=== PATIENT | male | born 1950 | race Caucasian/White ===

== ENCOUNTER 2023-08-26 | Outpatient (REF) | payer OTHER, SELFPAY ==
[2023-08-26 13:04] LABS: Glucose Random 118 mg/dL (60-115)
[2023-08-26 13:07] LABS: Estimated Average Glucose 128 mg/dL; Hemoglobin A1c % 6.1 % (<6.0)
== END 2023-08-26 00:01 | disposition home or self-care (01) ==
LOC: HO.LAB
PROVIDERS: Visit Provider Physician Assistant Surgical
DX: E66.9 Obesity, unspecified (principal); Z79.899 Other long term (current) drug therapy
CPT/HCPCS: 36415; 82947; 83036; 99453

== ENCOUNTER 2023-08-26 11:46 | Outpatient (AMB) | payer OTHER, SELFPAY ==
[2023-08-26 13:20] VITALS: BP 142/79; PULSE 89; TEMP 36.5; O2SAT 96; BMI 36.4
--- NOTE | 2023-08-26 13:20 | HO.OFFWMMET ---
Intake VS Expanded 08/26/23 13:20 BP 142/79 H Blood Pressure Location Rt brachial Blood Pressure Position Sitting Pulse 89 Pulse Source Pulse Oximeter Temp 97.7 F Temperature Source Tympanic Pulse Oximetry 96 Oxygen Delivery Method Room Air Height 5 ft 9 in Weight 246 lb 6.4 oz BMI 36.4 Body Fat % 37.8 Body Fat Mass 93.0 Fat Free Mass 153.2 Visceral Fat Rating 24.0 Body Water % 41.4 Body Water Mass 101.8 Muscle Mass/Score 145.8 Basal Metabolic Rate/Score 2,089 Intake Visit Reasons: (OV) metabolic group session Beverage Specialist Required: No Medication List - Last Reconciled 08/26/23 by FRANKLIN Keen [Saw palmetto PO] apixaban (Eliquis) 5 mg PO BID [ashwagandha PO] digoxin 125 mcg PO DAILY diltiazem HCl 180 mg PO DAILY [glucosamine chondroitin PO] lorazepam 0.5 mg PO DAILY PRN [metamucil PO] metoprolol succinate ER 100 mg PO DAILY omega 5-eel-xfi-fish oil 1,200 (144-216) mg (Fish Oil) caps PO rosuvastatin 5 mg PO DAILY tamsulosin 0.4 mg PO DAILY valsartan-hydrochlorothiazide 320-25 mg 1 tab PO DAILY zaleplon 10 mg PO BEDTIME PRN HPI HPI Comments History of Present Illness Details 73-year-old male presents to the metabolic clinic upon the advice of his primary care physician who noticed hyperglycemia. He did have a hemoglobin A1c today showing 6.1. He reports of the last 3 weeks, since seeing his primary care physician, that he has changed his overall diet, avoiding excessive carbs and he has not had any sugar. He is looking to improve his health, lifestyle and healthy living. He does have underlying hypertension as well as atrial fibrillation. Review of Systems Const All systems reviewed & are unremarkable except as noted in HPI and below Physical Exam Vital Signs: Last Vital Signs Temp 97.7 F 08/26/23 13:20 Pulse 89 08/26/23 13:20 BP 142/79 H 08/26/23 13:20 Pulse Ox 96 08/26/23 13:20 Oxygen Delivery Method Room Air 08/26/23 13:20 BMI result Body Mass Index 36.4 Assessment & Plan Assessment & Plan (1) Obesity (BMI 30-39.9): Code(s): E66.9 - Obesity, unspecified Plan: Pleasant 73-year-old male who presented to the office to participate in the metabolic clinic. He underwent the presentation for the metabolic clinic in decided to stay. He is not sure that he has the fortitude to maintain the structured diet however he is willing to try. He did go through the right BMI appt and received a structured meal plan as well as a structured exercise plan. I will text him my cell phone number so he may text me with any questions or concerns. He will return to clinic next week. Orders: Orders Glucose Random Today E66.9 - Obesity, unspecified Hemoglobin A1c Today E66.9 - Obesity, unspecified Coding Level of Care Code [address] [facility] Intital setup, [facility] Diagnoses Obesity (BMI 30-39.9) E66.9
== END 2023-08-26 15:09 | disposition home or self-care (01) ==
LOC: HO.META 11:47
PROVIDERS: PCP Orthopaedic Surgery; Visit Provider Physician Assistant Surgical
DX: E66.9 Obesity, unspecified (principal)

== ENCOUNTER → 2023-08-26 11:46 | Outpatient (BNVA) | payer OTHER, SELFPAY | PROVIDERS: PCP Orthopaedic Surgery; Visit Provider Physician Assistant Surgical | DX: E66.9 Obesity, unspecified (principal) ==